=== PATIENT | female | born 1930 | race Caucasian/White ===

== ENCOUNTER 2017-01-18 08:30 | Inpatient (IN) | payer MEDICARE, OTHER ==
[~2017-01-18] VITALS: Ht 152.4 cm; Wt 62.8 kg
[2017-01-18] VITALS (13 sets, daily range): BP systolic 122–187; BP diastolic 48–97; PULSE 59–99; RESP 10–18; O2SAT 95–100
[2017-01-18] MEDS: Lactated Ringer's 1,000 ML IV SCH ×3 (05:00→10:27)
[~2017-01-18 08:30] MED LIST: ACET-171 PO; CALC-761 PO; CHOL100045 PO; CYAN10008 PO; CeFAZolin 2 Gm/50 mL D5W IV Premix IV ONE; ESTR0.5T PO; HYDR99LO2 TP; LACT1CAP38 PO; MAGN400C PO; MULT-1073 PO; OMEP20CA11 PO; Vancomycin Inj 1,000 MG in IV Premix 1 EACH IV ONE; [UNRECOGNIZED DRUG - CODE] PO
[2017-01-18] MEDS ORDERED: CeFAZolin Inj 2 gm / 50mL D5W IV ONE (08:47)
[2017-01-18] MEDS ORDERED: Lactated Ringer's 1,000 ML IV SCH (10:06)
[2017-01-18] MEDS ORDERED: Lactated Ringer's 500 ML IV PRN (10:06)
--- NOTE | 2017-01-18 10:06 | PCM.HPANE ---
Patient Data Date of Service: Jan 18, 2017 Surgeon Admitting Provider: Attending Provider:Cory Calvillo DO Primary Care Physician:Aury Lomas Other Provider:Eleonora Poon Anesthesia Reason for Visit Left Hip Degenerative Joint Disease Ht/WT & BMI Height (Feet): 5 Height (Inches): 0.00 Height (Centimeters): 152 Weight (Kilograms): 62.8 Body Mass Index 27.00 Allergies Coded Allergies: sulfanilamide (Verified Allergy, Severe, RASH, 01/17/17) Past Anesthesia History Anesthesia History: Denies:: Anesthesia Reactions, Malignant Hyperthermia Diabetes History Hx Diabetes?: No MRSA MRSA: No Medications Hypertension Medication: No Home Meds Incl Beta [place]: No Reported Medications Cholecalciferol (Vitamin D3) (Vitamin D)1,000 Unit Capsule1,000 Unit PO DAILY # 1 BOTTLE Ref 0 01/17/17 Cyanocobalamin (Vitamin B-12) (Vitamin B-12)1,000 Mcg Tablet1,000 Mcg PO DAILY 01/17/17 Omeprazole 20 Mg Capsule.dr20 Mg PO DAILY Ref 0 01/17/17 Estrogens,Esterified (Menest)0.3 Mg Tablet0.3 Mg PO DAILY 01/17/17 Magnesium Oxide (Magnesium)400 Mg [id number] Mg PO DAILY 01/17/17 Hydrocortisone (Cortisone 1% Lotion)99 Gm Lotion1 Applic TP DAILY #1 BOTTLE Ref 0 01/17/17 Estradiol 0.5 Mg Tablet0.5-1 Mg PO DAILY 01/17/17 L. Rhamnosus GG/Inulin (Culturelle Capsule)10 Billion Cell-200 Mg Cap.sprink1 Each PO DAILY 01/17/17 Calcium Citrate/Vitamin D3 (Citracal + D Maximum Caplet)1 Each Tablet1 Each PO BID 01/17/17 Multivits-Min/FA/Lycopene/Lut (Centrum Silver Tablet)1 Each Tablet1 Each PO DAILY 01/17/17 Acetaminophen 500 Mg [id number] Mg PO Q12H PRN For Pain 01/17/17 History History of ENT Problems?: No Hx of Heart Problems?: Yes Cardiovascular History: Positive for:: Peripheral Vascular (VARICOSITIES S/ P LT LEG RFA X2) Denies:: Hypertension Hx of Respiratory Problem?: No Respiratory History: Denies:: Use of C-PAP Machine Hx Neurologic Problems?: No Hx of GI Problems?: Yes Gastrointestinal History: Positive for:: Gastroesphageal Reflux Denies:: Rectal Bleeding (HX OF COLON POLYPS) Other GI Pertinent History: C/OF CONSTIPATION Hx of Problems?: No Female Hx: Denies:: Currently Skin History: Denies:: History Skin Disorders? Pressure Ulcers Hx Musculoskeletal Problems?: Yes Musculoskeletal History: Positive for:: Degenerative Joint Musculoskeletal Trauma (C/OF LT SHOULDER PAIN) Osteoarthritis (LT HIP OA/CYST FORMATION/SCLEROSIS=CURRENT PROBLEM) Hx of Psycho/Social Problems?: No Hx Surgeries?: Yes (LT LEG RFA X2) Hx Any Other Health Problems?: Yes Other History: Positive for:: Thyroid Disease (SUBCLINICAL HYPOTHYROIDISM) Denies:: Cancer Endocrine Disease Hospitalization Hx Diabetes: No Hx Alcohol Use: NoHx Substance Use: NoHave You Smoked inLast 12 mo: No Stop/Bang Treated for Sleep Apnea?: No Do You Have a CPAP Machine?: No S-Snoring: Do You Snore Loudly: No T-Tired: feel tired, fatigued: No O-Obsered: Observed not breath: No P-Blood Pressure: treated: No B- Body Mass Index > 35 kg/m2: No A- Age over 50: Yes N- Neck Large Circumference: No G- Gender Male: No STEPHANIA Total Score: 1 STEPHANIA Risk Assessment: Low Risk, <3 Yes Risk Assessment Category Category 1A: Patient has history of documented sleep apnea, and HAS NOT received any narcotic, sedative or anesthesia administration during this stay. Category 1B: Patient has history of documented sleep apnea, and HAS received any narcotic , sedative or anesthesia administration during this stay Category 2: Patient has SUSPECTED Obstructive Sleep Apnea, and HAS received any narcotic , sedative or anesthesia administration during this stay. Category 3: Patient has SUSPECTED Obstructive Sleep Apnea and HAS NOT received narcotic, sedative or anesthesia administration during this stay. Category 4: Outpatient in Procedural Areas with known sleep apnea or who screen positive for High Risk via the STOP/BANG questionnaire. Exam Exam Vital Signs Vital Signs Date Time Temp Pulse Resp B/P Pulse Ox O2 Delivery O2 Flow Rate FiO2 01/18/17 09:06 36.2 70 16 146/86 96 Room Air General Appearance: Alert, Oriented X3, Cooperative HEENT/AIRWAY: MP 2, Neck Movement (Full), Mouth Opening (Wide) Lungs: Clear to Auscultation, Normal Air Movement Heart: Regular Rate/Rhythm, Normal S1, Normal S2 Meds/Labs/Diagnostics Admission Meds Current Medications Lactated Ringer's 1,000 ml @ 120 mls/hr Q8H20M IV Last administered on 05:31; Start 01/18/17 at 05:00; Stop 01/18/17 at 13:19 Vancomycin/0.9 % Sod Chloride/ Premix (Vancomycin Inj/ IV Premix) 200 ml @ 133.333 mls/hr PREOP ONCE IV Last administered on 01/18/17 08:55; Start 01/18 at 06:00; Stop 01/18/17 at 07:29; Status DC Labs Reviewed, wnl Plan Impression Patient chart reviewed, patient interviewed and anesthestic plan with risks, benefits, and alternatives discussed, and informed consent obtained. NPO Status: 01/17 AT 2200 ASA Physical Status: ASA2 Mod Systemic Disease Anesthetic Plan: SAB Bene/Risks/Altern/Consents: Yes HP Complete Prior to Induction: Yes Samy Auguste MD Jan 18, 2017 09:33
[2017-01-18] MEDS ORDERED: Dexamethasone 4 mg/mL Inj IVPUSH PRN (10:10)
[2017-01-18] MEDS ORDERED: Labetalol 5 mg/mL 4 mL Inj IV PRN (10:10)
[2017-01-18] MEDS ORDERED: MetoCLOpramide 5 mg/mL 2 mL Inj IVPUSH PRN (10:10)
[2017-01-18] MEDS ORDERED: EPHEDrine Sulfate 50 mg/mL Inj IVPUSH PRN (10:10)
[2017-01-18] MEDS ORDERED: Phenylephrine 10,000 mCg/mL Inj IVPUSH PRN (10:10)
[2017-01-18] MEDS ORDERED: hydrALAZINE 20 mg/mL Inj IVPUSH PRN (10:10)
[2017-01-18] MEDS ORDERED: Ondansetron 2 mg/mL 2 mL Inj IVPUSH PRN ×2 (10:10→12:40)
[2017-01-18] MEDS ORDERED: HYDROmorphone 1 mg/mL Inj IVPUSH PRN (10:10)
[2017-01-18] MEDS ORDERED: Atropine 0.4 mg/mL Inj IVPUSH PRN (10:10)
[2017-01-18] MEDS ORDERED: fentaNYL-PF 50 mCg/mL 2 mL Inj IVPUSH PRN (10:10)
[2017-01-18] MEDS ORDERED: Bupivacaine Liposome 1.3% 20 mL Inj ONE (10:21)
[2017-01-18] MEDS ORDERED: Bupivacaine-MPF 0.5% W/EPI 30 mL Inj INFILTRATE ONE (11:26)
[2017-01-18] MEDS ORDERED: Sodium Chloride LOK Flush 10 mL Syringe XX ONE (11:27)
[2017-01-18] MEDS ORDERED: diphenhydrAMINE 25 mg Capsule PO PRN (12:40)
[2017-01-18] MEDS ORDERED: Magnesium Hydroxide 10 mL Oral Concentration PO PRN (12:40)
[2017-01-18] MEDS ORDERED: Polyethylene Glycol (PEG) 17 Gm Powder PO PRN (12:40)
[2017-01-18] MEDS ORDERED: Ketorolac 15 mg/mL Inj IVPUSH PRN (12:40)
[2017-01-18 13:19] LABS: APPEARANCE,URINE HAZY (CLEAR,HAZY); COLOR,URINE STRAW (YELLOW); OCCULT BLOOD,URINE NEGATIVE (NEGATIVE); UROBILINOGEN,URINE NORMAL (NORMAL)
--- NOTE | 2017-01-18 13:27 | OP ---
[address] [address] OPERATIVE REPORT PATIENT: LION RAMIREZ : 1930 MR#: [id number] ADMIT: 01/18/2017 JOB ID: [id number] DATE OF SURGERY: 01/18/2017 PREOPERATIVE DIAGNOSIS(ES): Left hip degenerative joint disease. POSTOPERATIVE DIAGNOSIS(ES): Left hip degenerative joint disease. PROCEDURE: Left total hip arthroplasty. SURGEON: Cory Calvillo D.O. WIRELESS CONSULTANT: Nathaly Cordon PA-C. INDICATIONS: The patient is an 86-year-old female with left hip severe degenerative arthritis who has failed conservative measures. Had [id number] arthritis and wished to proceed with a left total hip arthroplasty. We discussed the risks, benefits, and possible complications of surgery. All questions were answered and she wished to proceed. A surgical device sales representative was required for the successful completion of this procedure. PROCEDURE IN DETAIL: The patient was brought to the operating room. She was given a preoperative antibiotic and 1 g TXA preop. A surgical time-out was performed and the left hip was sterilely prepped and draped. An incision was made over the greater trochanter in line with the femur. Dissection was carefully carried through the subcutaneous tissue and electrocautery was used for hemostasis. A split was then made in the iliotibial band in line with the skin incision and the Charnley retractor was then placed. A split was then made in the gluteus medius between the junction of the anterior one third and posterior two thirds, and Hohmann retractors were placed on either side of the femoral neck. The anterior sleeve of tissue was then released off of the trochanter leaving a cuff of tissue for repair. This was taken to a point just distal to the vastus tubercle. A small triangular portion of capsule was then removed and the hip was attempted to be dislocated. However, it would not dislocate and additional capsulotomy had to be performed in order to get the hip to come loose. Her femoral head was quite flattened and the bone was quite soft. The hip was ultimately dislocated and then a provisional neck cut was made about a fingerbreadth above the level of the lesser trochanter and then the femur was prepared beginning with a box osteotome. This was then sequentially broached up to a size 3 stem which had excellent fit and fill. A calcar planer was used to smooth the top of the femur. Next, the acetabulum was addressed and anterior and posterior acetabular retractors were placed. The pulvinar and labrum were resected and the hip was then reamed sequentially up to a 49. We trialed with a 49 which seemed to fit quite nicely and elected to place a 50 DePuy three-hole pinnacle cup. This was impacted into position. Care was taken to ensure the appropriate abduction and anteversion. This was further secured with a single superior dome screw, which had excellent fixation. I then trialed the hip and elected to use a Tri Lock size 3 stem with a 32+ one head and a 50 neutral liner. The hip was located, had excellent range of motion, great stability and equal leg lengths. The wound was copiously irrigated and then closed with #5 Ethibond to repair the gluteus medius and the remainder of the gluteus medius and vastus lateralis was repaired with #1 Surgilon. The iliotibial band was repaired with running #1 Surgilon and 0-Vicryl. The subcu was closed with 2-0 Vicryl. The skin was closed with a running 3-0 V lock suture. Ropivacaine mixed with dilute Exparel was added as an adjunct local anesthetic. Sterile dressings were applied. Patient tolerated the procedure well. Blood loss was 250 cc. POSTOPERATIVE PROTOCOL: Have the patient weightbear to tolerance. Use a walker for ambulation. Ice the hip and will plan to use aspirin for DVT prophylaxis and prescription was written for Lucama 5/325 for pain.
[2017-01-18] MEDS ORDERED: Lactated Ringer's 1,000 ML IV ONE (13:48)
--- NOTE | 2017-01-18 13:49 | DRSVH ---
PROCEDURE: X-RAY PELVIS W/LAT HIP (LT) ([id number]) INDICATIONS: post op TECHNIQUE: AP pelvis and lateral view of the left hip acquired. COMPARISON: [facility], , XR PELVIS W LATERAL HIP LT, 12/27/2016, 9:46. FINDINGS: Bones: Patient is status post left hip arthroplasty, with hardware components in expected positions. The hip joint appears congruent. The visualized bony structures appear intact. Soft tissues: Overlying postoperative changes are noted. No suspicious soft tissue densities. Righ t lower quadrant surgical clips redemonstrated. IMPRESSION: Expected alignment status post left hip arthroplasty. Dictated by: Gael BLOUNT Interpreted: Elda Ba MD on 01/18/2017 at 13:48 Transcribed by: ITZEL on 01/18/2017 at 13:48 Approved by: Elda Ba M.D. on 01/18/2017 at 16:31
--- NOTE | 2017-01-18 14:20 | PCM.ANEP1 ---
Post Anesthesia Phase 1 PACU Phase 1 Assessment Date of Service: Jan 18, 2017 Vital Signs Vital Signs Date Time Temp Pulse Resp B/P Pulse Ox O2 Delivery O2 Flow Rate FiO2 01/18/17 14:15 36.1 59 16 167/70 97 Room Air 01/18/17 13:55 59 10 160/59 96 Room Air 01/18/17 13:45 62 13 156/67 97 Room Air 01/18/17 13:40 36.6 60 13 163/69 97 Room Air 01/18/17 13:30 99 14 179/88 97 Room Air 01/18/17 13:20 78 13 176/97 96 Room Air 01/18/17 13:10 70 16 146/82 95 Room Air 01/18/17 13:05 70 10 169/77 97 Room Air 01/18/17 13:00 73 17 167/68 100 Simple Mask 8 01/18/17 12:55 36.5 67 18 187/77 100 Simple Mask 8 01/18/17 09:06 36.2 70 16 146/86 96 Room Air Anesthetic Administered: GA Level of Alertness: Sleepy, easy to arouse MERAZ's with Equal Strength: Yes Pain: No Nausea or Vomiting: No Oxygen Delivery: Simple Mask Lungs: Normal Air Movement Summary SAB block attempted at two levels, unable to pass needle past osteophytes. Pt uncomfortable, decision to proceed with GA made Samy Auguste MD Jan 18, 2017 14:20
[2017-01-18] MEDS: 0.9% Sodium Chloride 1,000 ML IV SCH (14:21)
[2017-01-18] MEDS ORDERED: HYDROmorphone 0.5 mg/0.5 mL iSecure Syringe IVPUSH PRN (14:35)
--- NOTE | 2017-01-18 14:37 | NUR ---
ADMIT TO [facility] Patient arrived to room 1007 on hospital bed. Awake and talking on room air. No c/o nausea/vomiting. Portillo catheter patent and draining. Drsg to L hip was C/D/I. Patient reports 2/10 pressure pain to L hip, was given IV pain medication recently in PACU. Good pedal pulses. L foot warm to touch with sensation present. IV patent in L AC. IV fluids running. Gave patient ice water. Family at bedside with patient. Continue to monitor.
[2017-01-18] MEDS ORDERED: Lidocaine PF 1% 30 mL Inj ONE (14:38)
[2017-01-18] MEDS ORDERED: Succinylcholine Chloride 20 mg/mL 5 mL Inj ONE (14:38)
[2017-01-18] MEDS ORDERED: Dexamethasone 4 mg/mL Inj ONE (14:38)
[2017-01-18] MEDS ORDERED: fentaNYL-PF 50 mCg/mL 2 mL Inj ONE (14:38)
[2017-01-18] MEDS ORDERED: Propofol 10,000 mCg/mL 20 mL Inj ONE (14:38)
[2017-01-18] MEDS ORDERED: Ondansetron 2 mg/mL 2 mL Inj ONE (14:38)
--- NOTE | 2017-01-18 15:40 | PCM.ANEP2 ---
Post Anesthesia Evaluation ASA/CMS Post Anesthesia Date of Service: Jan 18, 2017 VS in Patient's Normal Range?: Yes Resp Stable; Airway Patent?: Yes CV Function & Hydration Stable: Yes Mental Status Recovered?: Yes Pain control Satisfactory?: Yes N/V Control Satisfactory?: Yes Additional Comments Aborted SAB after difficulty passing needle past osteophytes at two levels. Samy Auguste MD Jan 18, 2017 15:40
[2017-01-18] MEDS: Sodium Chloride LOK Flush 10 mL Syringe IV SCH (16:30)
[2017-01-18] MEDS: HYDROcodone-APAP 5-325 mg Tablet PO PRN ×2 (17:17→21:01)
[2017-01-18] MEDS: CeFAZolin Inj 2 GM in IV Premix 1 EACH IV SCH (17:48)
[2017-01-18] MEDS ORDERED: CeFAZolin Inj 2 GM in IV Premix 1 EACH IV SCH (18:30)
[2017-01-18] MEDS: Senna-Docusate 8.6-50 mg Tablet PO SCH (21:01)
[2017-01-19] MEDS: Sodium Chloride LOK Flush 10 mL Syringe IV SCH ×3 (00:30→17:53)
[2017-01-19 00:45] VITALS: BP 111/69; PULSE 81; RESP 16; O2SAT 95
[2017-01-19] MEDS: 0.9% Sodium Chloride 1,000 ML IV SCH ×3 (00:53→18:39)
[2017-01-19] MEDS: CeFAZolin Inj 2 GM in IV Premix 1 EACH IV SCH (01:58)
--- NOTE | 2017-01-19 04:27 | NUR ---
Pain pt has had one tab of norco twice this shift. she reports good pain control with the Rienzi. L foot has palpable pedal pulses, toes are warm. pt has demonstrated her foot pump exercises for nurse. wedge is in place. ho cath will be removed this AM. care continues.
[2017-01-19 06:27] VITALS: BP 102/58; PULSE 71; RESP 16; O2SAT 97
[2017-01-19 06:46] LABS: BASOPHILS % (AUTO) 0.1 % (0-3); EOSINOPHILS % (AUTO) 0.2 % (0-5); MONOCYTES % (AUTO) 15.8 % (4-12); Mean Corpuscular Hemoglobin 31.1 pg (27.0-35.0); NEUTROPHILS % (AUTO) 73.7 % (40-74); Platelet Count 248 bil/L (150-400)
[2017-01-19] MEDS: HYDROcodone-APAP 5-325 mg Tablet PO PRN ×3 (08:19→18:26)
[2017-01-19] MEDS: Senna-Docusate 8.6-50 mg Tablet PO SCH ×2 (08:19→20:59)
--- NOTE | 2017-01-19 09:11 | PCM.PNORTH ---
Subjective Date of Service: Jan 19, 2017 Visit Information: Reason for Visit Left Hip Degenerative Joint Disease Surgery/Surgery Date L ROSSANA 01/18/17 Post-Op Day # 1 Date of Admission: Jan 18, 2017 at 14:37 Hospital Day # Subjective Patient has been out of bed twice with physical therapy. She is currently sitting up in a chair. She is quite pleased with her progress. Portillo has been removed and she is urinating without difficulty. Postop General: No Complaints, No Shortness of Breath, No Chest Pain, Good Appetite Pain Management: PO Objective Exam Objective Patient is seen sitting up in chair. Vital Signs and I/O Vital Sign - Last Date Time Temp Pulse Resp B/P Pulse Ox O2 Delivery O2 Flow Rate FiO2 01/19/17 06:27 36.9 71 16 102/58 97 Room Air 01/18/17 13:00 8 Intake and Output 01/18/17 01/18/17 01/19/17 Cumulative From/Thru 15:00 23:00 07:00 01/13/17 17:12 - 01/19/17 06:28 Intake Total 1420 ml 713 ml 1305 ml 3438 ml Output Total 790 ml 600 ml 750 ml 2140 ml Balance 630 ml 113 ml 555 ml 1298 ml Intake Oral 300 ml 200 ml 500 ml IV Total 1420 ml 413 ml 1105 ml 2938 ml Output Urine Total 540 ml 600 ml 750 ml 1890 ml Estimated Blood Loss 250 ml 250 ml Lab & Micro Results Laboratory Tests Test 01/18/17 11:45 01/19/17 05:55 Urine Color Straw (YELLOW) Urine Appearance Hazy (CLEAR,HAZY) Urine pH 7.0 (5.0-8.0) Urine Specific [place] 1.010 (1.003-1.035) Urine Protein Negativemg/dL (NEG,TRACE) Urine Glucose (UA) Negativemg/dL (NEGATIVE) Urine Ketones Negativemg/dL (NEGATIVE) Urine Occult Blood Negative (NEGATIVE) Urine Nitrite Negative (NEGATIVE) Urine Bilirubin Negative (NEGATIVE) Urine Urobilinogen Normalmg/dL (NORMAL) Urine Leukocyte Esterase Negative (NEGATIVE) Urine RBC 0-2/hpf (0-2) Urine WBC 0-5/hpf (0-5) Urine Epithelial Cells Occasional/hpf (NONE-MOD) Urine Crystals None seen (NONE SEEN) Urine Bacteria Few/hpf (NONE-FEW) Urine Hyaline Casts None/lpf (NONE) Urine Granular Casts None seen (NONE SEEN) Urine Waxy Casts None seen (NONE SEEN) Urine Red Blood Cell Casts None seen (NONE SEEN) Urine White Blood Cell Casts None seen (NONE SEEN) Urine Mucus None seen (None Seen) Urine Trichomonas None seen (NONE SEEN) Urine Yeast None (NONE SEEN) Urinalysis Comment None Urine Culture Reflexed Not indicated White Blood Count 18.5th/mm3 (3.8-10.1) Red Blood Count 2.96mil/mm3 (3.90-5.20) Hemoglobin 9.2g/dL (12.0-15.6) Hematocrit 29.6% (35.0-46.0) Mean Corpuscular Volume 100.0fL (81-100) Mean Corpuscular Hemoglobin 31.1pg (27.0-35.0) Mean Corpuscular Hemoglobin Concent 31.1% (32.0-37.0) Red Cell Distribution Width 15.8% (12.3-15.4) Platelet Count 248bil/L (150-400) Neutrophils (%) (Auto) 73.7% (40-74) Lymphocytes (%) (Auto) 9.2% (14-46) Monocytes (%) (Auto) 15.8% (4-12) Eosinophils (%) (Auto) 0.2% (0-5) Basophils (%) (Auto) 0.1% (0-3) Sodium Level 133mEq/L (134-144) Potassium Level 4.7mEq/L (3.5-5.2) Chloride Level 98mEq/L (97-108) Carbon Dioxide Level 22mmol/L (18-29) Blood Urea Nitrogen 17mg/dL (8-27) Creatinine 0.73mg/dL (0.57-1.00) Estimat Glomerular Filtration Rate 108mL/min (>59) Glucose Level 155mg/dL (60-99) Calcium Level 8.1mg/dL (8.5-10.1) Result Diagram: 01/19/1755401/19/17554 General Appearance: Alert, Oriented X3, Cooperative, No Acute Distress Extremities: Distal Pulses Palpable, No Compartment Syndrom Noted, Thigh & Calf Soft/Nontender Postop Sensory Motor: Distal Motor Intact, NVI Distally Activity: Activity per PT, Ambulate with PT Catheters: None Assessment & Plan Impression Status post left total hip arthroplasty Problems: Plan Weightbearing: Weightbearing as tolerated with walker DVT prophylaxis: 325 mg twice a day 6 weeks Physical therapy for transfers, progressive ambulation, therapeutic exercise Wound care: PA will change dressing on postop day 2 Discharge plan: Discharge home in 1-2 days. No outpatient physical therapy until after postop week 6 if needed Follow-up plan: In 2 weeks at [facility] with PA for wound check and at [address] Calvillo with x-rays Pain Management: [place] VTE Prophylaxis: SCDs, Other (aspirin) Resuscitation Status: CPR: Attempt Resuscitation [place]ath[place] Tin[place] PA-C Jan 19, 2017 09:11
[2017-01-19 10:41] VITALS: BP 118/63; PULSE 71; RESP 16; O2SAT 96
--- NOTE | 2017-01-19 12:13 | NUR ---
Evaluation completed. Please go to "Notes" then click on "Assessments and Notes" (bottom left corner of screen). Then select appropriate discipline tab on top of screen.
--- NOTE | 2017-01-19 15:05 | NUR ---
Social Work: Initial Assessment Data: Pt is an 86 y/o female admitted for left hip degenerative joint disease. Pt's PCP is Dr Lomas, pt's insurance is Medicare with [employer] [facility] [employer]. EMR reviewed. No readmit score listed. GEOLOGIST met with pt at bedside, role explained. Pt states she lives in [place] with her in a single story home where she uses no DME. Pt states she drives, has no hx with HH or SNF, no LTC or VA benefits and is not a caregiver. Pt states her has and AD/DPOA, her spouse is her POA. She states her will bring it it. PT recommending SNF at this time but states she will likely progress to home with either HH or outpt PT. Pt agreeable, states her will drive her home at d/c. F2F in GEOLOGIST folder. GEOLOGIST will continue to follow. Assessment: Pt who is independent at baseline. Plan: Pt will likely d/c home via POV when medically stable with either HH or outpt PT. GEOLOGIST will continue to follow. ADAM Ford Addendum: 01/19/17 at 1509 by MAGAN GOLDEN Amended: Links added.
--- NOTE | 2017-01-19 19:16 | NUR ---
Pain management Pain well controlled today with 2 tab vicodin Q4. Pt. very mobile today, working with PT and getting up to BSC and chair.
[2017-01-19 21:15] VITALS: BP 125/53; PULSE 82; RESP 16; O2SAT 95
[2017-01-20] MEDS: Sodium Chloride LOK Flush 10 mL Syringe IV SCH ×3 (04:36→16:30)
[2017-01-20] MEDS: HYDROcodone-APAP 5-325 mg Tablet PO PRN ×4 (04:36→17:45)
[2017-01-20] MEDS: 0.9% Sodium Chloride 1,000 ML IV SCH ×2 (04:39→14:39)
[2017-01-20 05:15] VITALS: BP 151/63; PULSE 74; RESP 18; O2SAT 99
--- NOTE | 2017-01-20 05:15 | NUR ---
Pain pt has been taking 2 tabs of norco for pain control. she says her pain is well controlled. she has been getting up and walking to the bathroom with staff and fww. she needs reminders to call for assistance before getting out of bed. care continues.
[2017-01-20 06:28] LABS: BASOPHILS % (AUTO) 0.1 % (0-3); EOSINOPHILS % (AUTO) 1.7 % (0-5); MONOCYTES % (AUTO) 18.2 % (4-12); Mean Corpuscular Hemoglobin 31.6 pg (27.0-35.0); NEUTROPHILS % (AUTO) 66.5 % (40-74); Platelet Count 230 bil/L (150-400)
[2017-01-20] MEDS: Senna-Docusate 8.6-50 mg Tablet PO SCH (09:02)
[2017-01-20 15:02] VITALS: BP 117/77; PULSE 77; RESP 18; O2SAT 98
--- NOTE | 2017-01-20 15:26 | NUR ---
spiritual car: routine brief conversational visit. pt reflected on pain and recovery process. agreeable for eucharistic social and human services assistant
--- NOTE | 2017-01-20 16:04 | NUR ---
Social Work- Readiness for Discharge Data: EMR reviewed. Pt is on day 2 of hospitalization for left hip degenerative joint disease per H&P. Pt is not medically stable, anticipate discharge later tonight or tomorrow. SW followed up with pt and at bedside regarding discharge plan. Pt states that she is unsure if she will need PT at this time. SW followed up with Ortho PA regarding pt's PT needs. Pt will not need HH PT at this time. Pt to discharge home with to transport via POV. No anticipated discharge needs. SW will continue to follow. Assessment: Pt who is independent at base. Plan: Pt does not need HH PT at this time. Pt to discharge home with to transport via POV. No anticipated discharge needs. SW will continue to follow. ADAM Mosher
--- NOTE | 2017-01-20 16:30 | PCM.PNORTH ---
Subjective Date of Service: Jan 20, 2017 Visit Information: Reason for Visit Left Hip Degenerative Joint Disease Surgery/Surgery Date L ROSSANA 01/18/17 Post-Op Day # Date of Admission: Jan 18, 2017 at 14:37 Hospital Day # Subjective Status post day #2 left total hip arthroplasty. Patient states her pain is doing much better today. She was able to walk quite well with physical therapy. Her pain is well controlled and she feels like she would be okay going home today. Postop General: No Complaints, No Shortness of Breath, No Chest Pain, Good Appetite Pain Management: PO Objective Exam Objective Patient is alert and oriented 3. Answering questions appropriately. Sitting up in bed and not in any acute distress today. Dressing is clean dry and intact. Patient able to wiggle toes. Calf is soft and non-tender, pulses intact, sensation is full. Hemoglobin and hematocrit are stable. Vital Signs and I/O Vital Sign - Last Date Time Temp Pulse Resp B/P Pulse Ox O2 Delivery O2 Flow Rate FiO2 01/20/17 15:02 36.6 77 18 117/77 98 Room Air 01/18/17 13:00 8 Intake and Output 01/19/17 01/19/17 01/20/17 Cumulative From/Thru 15:00 23:00 07:00 01/13/17 17:12 - 01/20/17 05:52 Intake Total 900 ml 400 ml 4738 ml Output Total 4 ml 1250 ml 3394 ml Balance 896 ml -850 ml 1344 ml Intake Oral 480 ml 400 ml 1380 ml IV Total 420 ml 3358 ml Output Urine Total 4 ml 1250 ml 3144 ml Estimated Blood Loss 250 ml # Voids 4 4 Lab & Micro Results Laboratory Tests Test 01/20/17 05:45 White Blood Count 15.3th/mm3 (3.8-10.1) Red Blood Count 2.91mil/mm3 (3.90-5.20) Hemoglobin 9.2g/dL (12.0-15.6) Hematocrit 29.1% (35.0-46.0) Mean Corpuscular Volume 100.0fL (81-100) Mean Corpuscular Hemoglobin 31.6pg (27.0-35.0) Mean Corpuscular Hemoglobin Concent 31.6% (32.0-37.0) Red Cell Distribution Width 15.7% (12.3-15.4) Platelet Count 230bil/L (150-400) Neutrophils (%) (Auto) 66.5% (40-74) Lymphocytes (%) (Auto) 12.2% (14-46) Monocytes (%) (Auto) 18.2% (4-12) Eosinophils (%) (Auto) 1.7% (0-5) Basophils (%) (Auto) 0.1% (0-3) Sodium Level 133mEq/L (134-144) Potassium Level 4.6mEq/L (3.5-5.2) Chloride Level 95mEq/L (97-108) Carbon Dioxide Level 23mmol/L (18-29) Blood Urea Nitrogen 17mg/dL (8-27) Creatinine 0.73mg/dL (0.57-1.00) Estimat Glomerular Filtration Rate 108mL/min (>59) Glucose Level 118mg/dL (60-99) Calcium Level 7.9mg/dL (8.5-10.1) Result Diagram: 01/20/17 0545 01/20/17 0545 Activity: Activity per PT, Ambulate with PT Catheters: None Assessment & Plan Impression Status post a #2 left total hip arthroplasty. Patient doing well, pain well controlled, working very well with physical therapy today. Problems: Plan You may place weight on the left hip as tolerated with walker DVT prophylaxis: Patient should take aspirin 325 mg twice a day 6 weeks You have a prescription for hydrocodone to take 1-2 tablets every 4-6 hours if needed for pain control. We also will discharge her with a stool softener that you may use with water. Wound care: Keep the dressing clean dry and in place until at least tomorrow. You may remove the dressing and shower. Do not soak or submerge the incision under water, do not scrub or rub the incision. If there is any drainage from the wound we would like you to replace this with a new dressing. You may also keep the dressing on until your two-week appointment if desired and keep the silver dressing in place under the bandages well. Discharge plan: Discharge home in today. No outpatient physical therapy until after postop week 6 if needed Follow-up plan: In 2 weeks at [facility] with PA for wound check and at [address] Calvillo with x-rays VTE Prophylaxis: SCDs, Other (aspirin) Resuscitation Status: CPR: Attempt Resuscitation Suhail Fletcher PA-C Jan 20, 2017 16:30
--- NOTE | 2017-01-20 16:35 | PCM.DC.ORT ---
Discharge Summary Date of Service: Jan 20, 2017 Date of Hospital Admission: Jan 18, 2017 at 14:37 Date of Surgery: Jan 18, 2017 Date of Discharge: Jan 20, 2017 Reason for Hospitalization: Left hip osteoarthritis Procedures Performed: Left total hip arthroplasty Hospital Course: Patient presented to [facility] surgical suite for the procedure of left total hip arthroplasty by Dr. Cory Calvillo on 01/18/2017. Patient was prepped for surgery and the procedure was performed successfully, patient was discharged to PACU under stable condition, tolerated the procedure well. Once stabilized in PACU and pain well controlled, patient was admitted to the hospital floor for observation, pain control, and progression with physical therapy. The first 1-2 days the patient was able to resume a regular diet, void on their own, not having any problems with nausea or vomiting. The patient did not have any adverse falls, reactions, or events were all in the hospital. The patient began working with physical therapy on day one then progressed quite well with reasonable pain control. On day 2 the patient was able to ambulate safely on their own, and pain was controlled sufficiently to be discharged to home. We will utilize aspirin 325 mg by mouth twice a day for 6 weeks for DVT prophylaxis. The patient was discharged to home under stable condition with plan to follow- up with patient at 2 weeks for a postoperative appointment. Diagnosis at Time of Discharge Status post left total hip arthroplasty Problems: Discharge Instructions: You may place weight on the left hip as tolerated with walker DVT prophylaxis: Patient should take aspirin 325 mg twice a day 6 weeks You have a prescription for hydrocodone to take 1-2 tablets every 4-6 hours if needed for pain control. We also will discharge her with a stool softener that you may use with water. Wound care: Keep the dressing clean dry and in place until at least tomorrow. You may remove the dressing and shower. Do not soak or submerge the incision under water, do not scrub or rub the incision. If there is any drainage from the wound we would like you to replace this with a new dressing. You may also keep the dressing on until your two-week appointment if desired and keep the silver dressing in place under the bandages well. Discharge plan: Discharge home in today. No outpatient physical therapy until after postop week 6 if needed Follow-up plan: In 2 weeks at [facility] with RANDA for wound check and at [address] Calvillo with x-raysYou may place weight on the left hip as tolerated with walker Acetaminophen (Acetaminophen) 500 Mg Tablet 500 MG PO Q12H PRN PRN For Pain Calcium Citrate/Vitamin D3 (Citracal + D Maximum Caplet) 1 Each Tablet 1 EACH PO BID Cholecalciferol (Vitamin D3) (Vitamin D) 1,000 Unit Capsule 1,000 UNIT PO DAILY Cyanocobalamin (Vitamin B-12) (Vitamin B-12) 1,000 Mcg Tablet 1,000 MCG PO DAILY Estradiol (Estradiol) 0.5 Mg Tablet 0.5-1 MG PO DAILY Estrogens,Esterified (Menest) 0.3 Mg Tablet 0.3 MG PO DAILY Hydrocortisone (Cortisone 1% Lotion) 99 Gm Lotion 1 APPLIC TP DAILY L. Rhamnosus GG/Inulin (Culturelle Capsule) 10 Billion Cell-200 Mg Cap.sprink 1 EACH PO DAILY Magnesium Oxide (Magnesium) 400 Mg Capsule 400 MG PO DAILY Multivits-Min/FA/Lycopene/Lut (Centrum Silver Tablet) 1 Each Tablet 1 EACH PO DAILY Omeprazole (Omeprazole) 20 Mg Capsule. 20 MG PO DAILY Suhail Fletcher PA-C Jan 20, 2017 16:35
--- NOTE | 2017-01-20 16:36 | PCM.DIORTH ---
Ortho Discharge Instruction Date of Service: Jan 20, 2017 Dates of Hospitalization Date of Hospital Admission Jan 18, 2017 at 14:37 Providers Admitting Physician: Cory Calvillo DO Primary Care Physician: Aury Lomas Attending Physician: Cory Calvillo DO Diet Discharge Diet: No restrictions Activity Discharge Activity-General: Try not to overdue Left Lower Extremity: Weight Bearing as tolerated Discharge Assist Device: Front Wheeled Walker Additional Instructions Discharge Instructions You may place weight on the left hip as tolerated with walker DVT prophylaxis: Patient should take aspirin 325 mg twice a day 6 weeks You have a prescription for hydrocodone to take 1-2 tablets every 4-6 hours if needed for pain control. We also will discharge her with a stool softener that you may use with water. Wound care: Keep the dressing clean dry and in place until at least tomorrow. You may remove the dressing and shower. Do not soak or submerge the incision under water, do not scrub or rub the incision. If there is any drainage from the wound we would like you to replace this with a new dressing. You may also keep the dressing on until your two-week appointment if desired and keep the silver dressing in place under the bandages well. Discharge plan: Discharge home in today. No outpatient physical therapy until after postop week 6 if needed Follow-up plan: In 2 weeks at [facility] with RANDA for wound check and at [address] Calvillo with x-rays Suhail Fletcher PA-C Jan 20, 2017 16:36
--- NOTE | 2017-01-20 18:13 | NUR ---
Discharge Pt discharged at 1800 in w/c to private vehicle with family. Pt pain 2/, but premedicated prior to leaving. Pt VSS, MERAZ, A&O x 3. IV removed intact. Pt has discharge instructions, rx's and care notes. All questions answered and has all belongings.
== END 2017-01-20 17:58 | disposition home or self-care (01) | DRG 470 ==
LOC: SAS 08:30 → OSC 14:08
PROVIDERS: ADMIT Orthopaedic Surgery; ATTEND Orthopaedic Surgery
PROC: 0SN90ZZ Release Right Hip Joint, Open Approach (ICD-10-PCS; 2017-01-18)
PROC: 0SRB0JZ Replacement of Left Hip Joint with Synthetic Substitute, Open Approach (ICD-10-PCS; principal; 2017-01-18 10:45)
DX: M16.12 Unilateral primary osteoarthritis, left hip (principal); K21.9 Gastro-esophageal reflux disease without esophagitis; M24.551 Contracture, right hip